=== PATIENT | male | born 1945 | race Caucasian/White ===

== ENCOUNTER → 2024-04-27 13:02 | Outpatient (REF) | payer MEDICARE, SELFPAY | LOC: HWRAD 13:02 | PROVIDERS: ATTENDING PHYSICIAN Internal Medicine | DX: M54.50 Low back pain, unspecified (principal) | CPT/HCPCS: 72110 ==

== ENCOUNTER 2024-09-04 10:51 | Emergency (ER) | payer MEDICARE, SELFPAY ==
[2024-09-04 10:52] VITALS: BP 153/85
--- NOTE | 2024-09-04 10:54 | ED.GENMED ---
ED Provider Triage
<Nafisa Schmidt PA-C - Last Filed: 09/04/24 10:59>
-
Patient seen by provider in Triage?: Seen in Triage
Attestation: A medical screening examination has been initiated by a qualified medical provider. Based on the assessment performed at this time, it has been determined that an emergent medical condition may exist and the patient has been informed
that further medical evaluation and possible additional diagnostic testing may be needed.
HPI: 79yoM here with posterior neck pain x 2 days. Started after he sat down on a chair and leaned back. Also having vomiting due to the pain. Has not been able to sleep. Pain radiates to the shoulders and head.
GENERAL: Alert , in no apparent distress
EYE: No visual abnormalities.
NECK: Trachea midline
ENT: No visible abnormalities.
LUNGS: No acute respiratory distress
NEUROLOGICAL: Alert and oriented
SKIN: Skin intact. No visible changes.
MUSCULOSKELETAL: Moving extremities normally
PSYCH: Normal and appropriate interaction.
This is a medical evaluation conducted in person to initiate diagnostic evaluation and provide initial therapeutics. Please see further documentation by the treating clinician.
Patient requesting medications while in triage. Tylenol and lidocaine patch ordered.
History of Present Illness
<Nafisa Schmidt PA-C - Last Filed: 09/04/24 10:59>
General
Chief Complaint: Musculo-Skeletal Complaint
Time Seen by Provider: 09/04/24 12:08
<Job Gates PA-C - Last Filed: 09/05/24 18:51>
General
Source: patient
Exam Limitations: none
History of Present Illness
History of Present Illness:
79-year-old male presents with worsening neck pain that radiates to both shoulders starting 2 days ago. He was about to lay down in the recliner and pushing backwards to recliner and felt sudden onset sharp neck pain. Since then the pain slowly
radiated down the shoulders. With no associated chest pain or pleuritic component to this. He denies associated headache or vision change. He has difficulty turning his head from 1 direction to the other. He tried [id number] medication
without any relief. He states he has a known history of arthritis in his neck. No other complaints at this time
Past History
<Nafisa Schmidt PA-C - Last Filed: 09/04/24 10:59>
Past History
ED Past Medical History: GERD, Hypercholesterolemia and Psychiatric (depression); Negative CAD or HTN
ED Past Surgical History: Appendectomy and Orthopedic
Social History
Personal:
Living: with family
Employment: Employed
Family History
Family History: Cancer
Phy Exam
<Job Gates PA-C - Last Filed: 09/05/24 18:51>
Physical Exam
Physical Exam:
General: Well-appearing male no acute respiratory distress
HEENT: Normocephalic pupils equal round reactive to light extract motions are intact
Heart: Regular rate and rhythm no murmurs
Lungs: Clear to auscultation bilaterally no wheezing
Musculoskeletal exam: Paraspinous muscle spasm noted to the cervical spine. He is mildly diffusely tender over the midline as well. He significant limited range of motion to the neck
Neurologic: Good strength and sensation to the upper extremities
Vascular: 2+ radial pulse bilateral wrist
Course
<Naifsa Schmidt PA-C - Last Filed: 09/04/24 10:59>
Orders/Labs/Results
Orders:
Orders
09/04/24 10:57
Acetaminophen [Tylenol] 1,000 mg PO NOW STA
09/04/24 11:00
Lidocaine [Lidocaine 4% Patch] 1 patch TOPICAL DAILY
Apply Lidocaine patch(s) to:: neck
09/04/24 12:14
CT Cervical Spine W/o Iv Contr Urgent
Comment:
Reason For Exam: neck pain
Diazepam [Valium] 5 mg PO NOW STA
09/04/24 14:51
Oxycodone/Acetaminophen [Percocet 5/325] 1 tablet PO NOW STA
Vital Signs
Initial and Last Documented VS:
Initial Vital Signs
Temp Pulse Resp BP Pulse Ox
97.7 F 70 18 153/85 96
09/04/24 10:52 09/04/24 10:52 09/04/24 10:52 09/04/24 10:52 09/04/24 10:52
Last Documented Vital Signs
Temp Pulse Resp BP Pulse Ox
97.7 F 55 18 166/75 98
09/04/24 10:52 09/04/24 16:12 09/04/24 16:12 09/04/24 16:12 09/04/24 16:12
<Job Gates PA-C - Last Filed: 09/05/24 18:51>
Orders/Labs/Results
Orders:
Orders
09/04/24 10:57
Acetaminophen [Tylenol] 1,000 mg PO NOW STA
09/04/24 11:00
Lidocaine [Lidocaine 4% Patch] 1 patch TOPICAL DAILY
Apply Lidocaine patch(s) to:: neck
09/04/24 12:14
CT Cervical Spine W/o Iv Contr Urgent
Comment:
Reason For Exam: neck pain
Diazepam [Valium] 5 mg PO NOW STA
09/04/24 14:51
Oxycodone/Acetaminophen [Percocet 5/325] 1 tablet PO NOW STA
Vital Signs
Initial and Last Documented VS:
Initial Vital Signs
Temp Pulse Resp BP Pulse Ox
97.7 F 70 18 153/85 96
09/04/24 10:52 09/04/24 10:52 09/04/24 10:52 09/04/24 10:52 09/04/24 10:52
Last Documented Vital Signs
Temp Pulse Resp BP Pulse Ox
97.7 F 55 18 166/75 98
09/04/24 10:52 09/04/24 16:12 09/04/24 16:12 09/04/24 16:12 09/04/24 16:12
<Job Gates PA-C - Last Filed: 09/05/24 18:51>
MDM/Problems Addressed
Differential Diagnosis Includes:
Neck pain. Consider musculoskeletal strain versus herniated disc. No fever to suggest meningitis. No headache or vision change do not suspect dissection.
Patient was given Tylenol and Lidoderm which seems to be helping somewhat. Will order Valium as he is very. CT of the cervical spine pending
<Job Gates PA-C - Last Filed: 09/05/24 18:51>
*Critical Care Note
Total Time (30-74mins, 75-104mins- exclusive of procedures): Not Applicable
<Job Gates PA-C - Last Filed: 09/05/24 18:51>
Update Note
Update Note:
CT cervical spine demonstrates multilevel degenerative changes without acute traumatic injury. Patient is neurologically intact. His motion is limited. Do not suspect meningitis with lack of fever or other infectious signs. Suspect significant
muscular strain. Will apply soft collar to ease stress and will prescribe muscle relaxer for him to take at home.
ED Attending Note
<Nafisa Schmidt PA-C - Last Filed: 09/04/24 10:59>
-
Portions of this chart may have been created with voice recognition software.� Occasional wrong word or��sound alike� substitutions may have occurred due to the inherent limitations of voice recognition software.
Discharge Plan
Departure
Patient Disposition: Home (Routine Discharge)
Date of Disposition: 09/04/24
Time of Disposition: 15:00
Patient with high blood pressure during this ER visit?: No
Discharge Problem:
Cervical strain
Instructions: Muscle and Bone Pain (DC)
Prescriptions:
New
prednisone 10 mg Tablet
See Rx Instructions .ROUTE .COMPLEX Qty: 30 0RF
Rx Instructions:
Take By Mouth:
40 mg daily x3 days, 30 mg daily x3 days,
20 mg daily x3 days, 10 mg daily x3 days.
cyclobenzaprine 10 mg tablet
10 mg PO Q8H PRN (Reason: spasm) Qty: 10 0RF
oxycodone-acetaminophen [Percocet] 5-325 mg tablet
1 tab PO Q6HPRN PRN (Reason: pain) Qty: 10 0RF
No Action
omeprazole 20 MG capsule,delayed release(DR/EC)
20 mg PO DAILY
sertraline 50 MG tablet
50 mg PO DAILY
atorvastatin 10 MG tablet
10 mg PO DAILY
amlodipine 5 MG tablet
5 mg PO DAILY
naproxen sodium [Aleve] 220 MG tablet
220 - 440 mg PO PRN PRN (Reason: pain)
allopurinol 300 MG tablet
300 mg PO DAILY
multivitamin with folic acid [Tab-A-Genoveva] 1 TABLET tablet
1 tab PO DAILY
mupirocin 1 APPLIC ointment
1 applic intranasal BID Qty: 1 0RF
Patient Comments:
applied this am in SDS
Tylenol :
650 mg PO DAILY
sennosides [senna] 1 TABLET tablet
2 tab PO BID 0RF
aspirin 325 MG tablet
325 mg PO DAILY Qty: 30 0RF
Rx Instructions:
daily 4 weeks to prevent blood clots
magnesium hydroxide 30 ML suspension
30 ml PO DAILYPRN PRN (Reason: constipation) 0RF
docusate sodium 100 MG capsule
100 mg PO BID 0RF
alum-mag hydroxide-simeth [Mag-Al Plus] 30 ML suspension
30 ml PO Q4HPRN PRN (Reason: indigestion) 0RF
oxycodone 5 MG tablet
5 mg PO Q4HPRN PRN (Reason: mild pain) Qty: 30 0RF
Rx Instructions:
1 every 4 hours as needed for pain
Sent to [facility]
Referrals:
NONE,* [Family Provider] -
Activity Restrictions/Additional Instructions:
Use medications as prescribed. Use soft collar if needed. Follow up with family doctor.
Interventions
Interventions:
*Risk Screen - Suicide Last Done: 09/04/24 10:52
*General Assessment Last Done: 09/04/24 10:52
*Neglect/Abuse Screening Last Done: 09/04/24 10:52
ED- Fall Risk Assessment Last Done: 09/04/24 12:24
*ED COVID-19 Vaccine History Last Done: 09/04/24 12:24
*Nursing Disposition Last Done: 09/04/24 16:12
ED-Musculoskeletal Assessment Last Done: 09/04/24 13:30
Discharge Date and Time
Discharge Date/Time: 09/04/24 16:13
Print Language: [email or web address]
[2024-09-04] MEDS: TYLENOL 1000 MG PO (11:04)
[2024-09-04] MEDS: LIDOCAINE 4% PATCH 1 PATCH TOPICAL (11:04)
[2024-09-04] MEDS: VALIUM 5 MG PO (12:21)
[2024-09-04] MEDS: PERCOCET 5/325 1 TABLET PO (15:29)
[2024-09-04 16:12] VITALS: BP 166/75
== END 2024-09-04 16:13 | disposition home or self-care (01) ==
LOC: EMR 10:51
PROVIDERS: EMERGENCY PHYSICIAN Emergency Medicine
DX: S16.1XXA Strain of muscle, fascia and tendon at neck level, initial encounter (principal); X58.XXXA Exposure to other specified factors, initial encounter; E78.00 Pure hypercholesterolemia, unspecified; K21.9 Gastro-esophageal reflux disease without esophagitis; Z90.49 Acquired absence of other specified parts of digestive tract
CPT/HCPCS: 99284; 72125

== ENCOUNTER → 2024-10-01 13:53 | Outpatient (REF) | payer MEDICARE, SELFPAY | LOC: HWRAD 13:53 | PROVIDERS: ATTENDING PHYSICIAN Physician Assistant | DX: M25.50 Pain in unspecified joint (principal) | CPT/HCPCS: 72052 ==